=== PATIENT | male | born 1950 | race Caucasian/White ===

== ENCOUNTER → 2017-03-30 | Outpatient (CLI) | payer OTHER, MEDICARE | LOC: FIMAGING 10:22 | PROVIDERS: ATTEND Orthopaedic Surgery ==

== ENCOUNTER 2017-04-13 07:07 | Observation (INO) | payer OTHER, MEDICARE ==
[2017-03-30 11:31] LABS: % IMMATURE GRANULYOCYTES 0.2 % (0.0-1.1); ABSOLUTE IMMATURE GRANULOCYTES 0.02 10^3/uL (0.00-0.10); ADD DIFF? NO; ADD MORPH? NO; ADD SCAN? NO; ATYPICAL LYMPHOCYTE FLAG 0 (0-99); FRAGMENT RBC FLAG 0 (0-99); HEMATOCRIT 48.5 % (40.0-51.0); HEMOGLOBIN 16.9 g/dL (13.7-17.5); LEFT SHIFT FLG 0 (0-99); LIPEMIA HEMOLYSIS FLAG 90 (0-99); MEAN CELL HEMOGLOBIN 31.5 pg (27.9-34.1); MEAN CELL HEMOGLOBIN CONCENTR. 34.8 g/dL (32.4-36.7); MEAN CELL VOLUME 90.3 fL (81.5-99.8); PLATELET CLUMPS FLAG 0 (0-99); PLATELET COUNT 230 10^3/uL (150-400); RED BLOOD CELL COUNT 5.37 10^6/uL (4.40-6.38); RED CELL DISTRIBUTION WIDTH 12.7 % (11.5-15.2)
[~2017-04-13 07:07] MED LIST: ROPIVACAINE 0.2% 80 MG, EPINEPHrine 0.2 MG, KETOROLAC TROMETHAMINE 30 MG in BAG 0 ML IU ONE; TRANEXAMIC ACID 3,000 MG in NS 50 ML IRR ONE; TRANEXAMIC ACID 3,000 MG/50 ML BAG IRR ONE; VANCOMYCIN 1 GM VIAL ONE; ceFAZolin 2 GM/DEXTROSE 100 ML IV ONE
[2017-04-13] MEDS ORDERED: ACETAMINOPHEN 325 MG TAB PO ONE (08:00)
[2017-04-13] MEDS ORDERED: DEXAMETHASONE 4 MG/ML VIAL IVP ONE (08:00)
[2017-04-13] MEDS ORDERED: FAMOTIDINE 20 MG TAB PO ONE (08:00)
[2017-04-13] MEDS ORDERED: LR 1,000 ML IV ONE (08:02)
[2017-04-13] MEDS ORDERED: LIDOCAINE 1% 2 ML INJ ID PRN (08:02)
[2017-04-13] MEDS ORDERED: ONDANSETRON 4 MG/2 ML VIAL IVP PRN ×2 (08:18→10:18)
[2017-04-13] MEDS ORDERED: fentaNYL 100 MCG/2 ML INJ IVP PRN (08:18)
[2017-04-13] MEDS ORDERED: MIDAZOLAM 2 MG/2 ML VIAL IVP ONE (08:18)
[2017-04-13] MEDS ORDERED: OXYCODONE/APAP 5/325 TAB PO PRN (08:18)
[2017-04-13] MEDS ORDERED: NALOXONE HCL 0.4 MG/ML INJ IVP PRN (08:18)
[2017-04-13] MEDS ORDERED: ALBUTEROL 3 ML DEYVIAL IH PRN (08:18)
--- NOTE | 2017-04-13 08:20 | PDANEPAE ---
ANE History of Present Illness Left Partial Knee ANE Past Medical History - Cardiovascular History Hx Hypertension: No Hx Arrhythmias: No Hx Chest Pain: No Hx Coronary Artery / Peripheral Vascular Disease: No Hx CHF / Valvular Disease: No Hx Palpitations: No - Pulmonary History Hx COPD: No Hx Asthma/Reactive Airway Disease: No Hx Recent Upper Respiratory Infection: No Hx Oxygen in Use at Home: No Hx Sleep Apnea: No Sleep Apnea Screening Result - Last Documented: Negative - Neurologic History Hx Cerebrovascular Accident: No Hx Seizures: No Hx Dementia: No Neurologic History Comment: [facility] DX 2013 - Endocrine History Hx Diabetes: No - Renal History Hx Renal Disorders: No - Liver History Hx Hepatic Disorders: No - Neurological & Psychiatric Hx Hx Neurological and Psychiatric Disorders: No - Cancer History Hx Cancer: No - Congenital Disorder History Hx Congenital Disorders: No - GI History Hx Gastrointestinal Disorders: No - Other Health History Other Health History: NEG - Chronic Pain History Chronic Pain: Yes (LT KNEE) - Surgical History Prior Surgeries: LT KNEE SCOPE . TONSILLECTOMY ANE Review of Systems Review of Systems: - Exercise capacity METS (RN): 4 METS ANE Patient History - Allergies Allergies/Adverse Reactions: No Known Allergies Allergy (Unverified 03/23/17 10:00) - Home Medications Home Medications: Carbidopa/Levodopa 25/100Mg [Sinemet 25/100 MG (*)] 1 tab PO TID@07,,17 [Last Taken 04/13/17] Cholecalciferol Vit D3 [Vitamin D3 2000 units tab (OTC)] 2,000 units PO DAILY [Last Taken 03/23/17] Multivitamins [Multivitamin (*)] 1 each PO DAILY 03/23/17 [Last Taken 03/23/17] Testorone 4mg/24hr Patch 1 patch TD DAILY 03/23/17 [Last Taken 03/23/17] - NPO status NPO Since - Liquids (Date): 04/13/17 NPO Since - Liquids (Time): 05:30 NPO Since - Solids (Date): 04/12/17 NPO Since - Solids (Time): 19:00 - Smoking Hx Smoking Status: Never smoked - Family Anes Hx Family Hx Anesthesia Complications: NONE ANE Labs/Vital Signs - Labs Result Diagrams: 03/30/17 11:17 - Vital Signs Blood Pressure: 136/90 Heart Rate: 68 Respiratory Rate: 16 O2 Sat (%): 95 Height: 180.34 cm Weight: 92.986 kg ANE Physical Exam - Airway Neck exam: FROM Mallampati Score: Class 2 Mouth exam: normal dental/mouth exam - Pulmonary Pulmonary: clear to auscultation - Cardiovascular Cardiovascular: regular rate and rhythym - ASA Status ASA Status: II ANE Anesthesia Plan Anesthesia Plan: spinal Regional Anesthesia: adductor canal FNB
[2017-04-13] MEDS ORDERED: PROPOFOL/EMULSION 500 MG/50 ML BOTTLE IV ONE ×2 (08:24→09:49)
--- NOTE | 2017-04-13 09:03 | PDHPUP ---
History & Physical Update H&P update statement: This history and physical update is based on an assessment of the patient which was completed after admission or registration (within 24 hours), but prior to the surgery/procedure. H&P update: H&P reviewed & patient examined, no change in patient's condition since H&P completed
[2017-04-13] MEDS ORDERED: ROPIVACAINE HCL 150 MG/30 ML INJ ONE (10:04)
[2017-04-13] MEDS ORDERED: BISACODYL 10 MG SUPP PR PRN (10:18)
[2017-04-13] MEDS ORDERED: diphenhydrAMINE 25 MG CAP PO PRN (10:18)
[2017-04-13] MEDS ORDERED: LACTULOSE 20 GM/30 ML UDCUP PO PRN (10:18)
[2017-04-13] MEDS ORDERED: TEMAZEPAM 15 MG CAP PO PRN (10:18)
[2017-04-13] MEDS ORDERED: CYCLOBENZAPRINE 10 MG TAB PO PRN (10:18)
[2017-04-13] MEDS ORDERED: POLYETHYLENE GLYCOL 3350 17 GM PKT PO PRN (10:18)
[2017-04-13] MEDS ORDERED: MAGNESIUM HYDROXIDE 30 ML UDCUP PO PRN (10:18)
[2017-04-13] MEDS ORDERED: DIPHENOXYLATE/ATROPINE LOMOTIL 1 TAB PO PRN (10:18)
[2017-04-13] MEDS ORDERED: ONDANSETRON DISINTEGRATING 4 MG TAB PO PRN (10:18)
--- NOTE | 2017-04-13 10:18 | POSTOPPROG ---
Post Op Note Date of Operation: 04/13/17 Surgeon: Risa Gay Informatica Developer: tru black Anesthesiologist: chilo Anesthesia: IV Sedation, Local (Specify) (adductor canal), Spinal Pre-op Diagnosis: left knee medial compartment OA Post-op Diagnosis: left knee medial compartment OA Indication: failed conservative therapies Procedure: L partial knee arthroplasty, robot assist Inf/Abcess present in the surg proc area at time of surgery?: No EBL: Minimal
[2017-04-13] MEDS ORDERED: LR 1,000 ML IV SCH (10:30)
[2017-04-13] MEDS: ACETAMINOPHEN 325 MG TAB PO SCH ×2 (11:48→17:53)
[2017-04-13] MEDS ORDERED: CARBIDOPA/LEVODOPA 25 MG/100 MG TAB PO SCH ×3 (12:00→14:00)
[2017-04-13] MEDS: oxyCODONE IR 5 MG TAB PO PRN ×2 (13:55→20:29)
[2017-04-13] MEDS: CARBIDOPA/LEVODOPA 25 MG/100 MG TAB PO SCH ×2 (15:38→19:03)
[2017-04-13] MEDS: ceFAZolin 2 GM/DEXTROSE 100 ML IV SCH (17:52)
[2017-04-13] MEDS: ASPIRIN 325 MG TAB PO SCH (20:29)
[2017-04-13] MEDS: SENNOSIDES/DOCUSATE SODIUM TAB PO SCH (20:29)
[2017-04-13] MEDS: FAMOTIDINE 20 MG TAB PO SCH (20:29)
[2017-04-14] MEDS: ACETAMINOPHEN 325 MG TAB PO SCH ×4 (00:07→16:39)
[2017-04-14] MEDS: ceFAZolin 2 GM/DEXTROSE 100 ML IV SCH (00:08)
[2017-04-14 04:53] VITALS: RESP 16
[2017-04-14 05:28] LABS: HEMATOCRIT 41.3 % (40.0-51.0); HEMOGLOBIN 14.1 g/dL (13.7-17.5)
[2017-04-14] MEDS: CARBIDOPA/LEVODOPA 25 MG/100 MG TAB PO SCH ×3 (06:44→16:39)
[2017-04-14] MEDS: oxyCODONE IR 5 MG TAB PO PRN ×3 (08:35→16:37)
[2017-04-14] MEDS: SENNOSIDES/DOCUSATE SODIUM TAB PO SCH (08:35)
[2017-04-14] MEDS: ASPIRIN 325 MG TAB PO SCH (08:35)
[2017-04-14] MEDS: FAMOTIDINE 20 MG TAB PO SCH (08:36)
[2017-04-14 12:06] VITALS: PULSE 61
--- NOTE | 2017-04-14 12:11 | SOAPPROG ---
SOAP Progress Note Assessment/Plan: Assessment: Patient is doing well POD 1 s/p L PKA Pain management: pain is well controlled on oral pain meds. VTE ppx: recommend aspirin daily for 3 weeks, cont SHANNAN and SCDs Anemia: level is expected initially postop. Asymptomatic. Continue to monitor D/c planning: d/c to [facility] today pending release from PT Plan: 04/14/17 12:10 Objective: Vital Signs Temp Pulse Resp BP Pulse Ox 36.9 C 61 16 119/78 94 04/14/17 12:00 04/14/17 12:00 04/14/17 12:00 04/14/17 12:00 04/14/17 12:00 Laboratory Results 04/14/17 04:31 04/13/17 04/14/17 04/15/17 05:59 05:59 05:59 Intake Total 3461 500 Output Total 555 Balance 2906 500 ICD10 Worksheet Patient Problems: Problems Problem Status Onset Osteoarthritis of left knee Acute - ICD10 Problem Qualifiers (1) Osteoarthritis of left knee Qualifiers: Osteoarthritis type: primary Qualified Code(s): M17.12 - Unilateral primary osteoarthritis, left knee
--- NOTE | 2017-04-14 12:15 | PDIAF ---
- Diagnosis Diagnosis: left knee OA Code Status: Full Code - Medication Management Discharge Medications: Medications to Continue on Transfer Carbidopa/Levodopa 25/100Mg [Sinemet 25/100 MG (*)] 1 tab PO TID@, [Last Taken 04/13/17] Cholecalciferol Vit D3 [Vitamin D3 2000 units tab (OTC)] 2,000 units PO DAILY [Last Taken 03/23/17] Multivitamins [Multivitamin (*)] 1 each PO DAILY 03/23/17 [Last Taken 03/23/17] Acetaminophen [Tylenol 325mg (*)] 650 mg PO Q6HRS tab 04/14/17 [Last Taken Unknown] Aspirin [Aspirin 325 mg (*)] 325 mg PO DAILY tab 04/14/17 [Last Taken Unknown] Ondansetron Odt [Zofran Odt 4 mg (*)] 4 mg PO Q4HRS PRN tab 04/14/17 [Last Taken Unknown] Sennosides/Docusate Sodium [Senokot-S] 1 - 2 tab PO BID tab 04/14/17 [Last Taken Unknown] celeCOXIB [Celebrex (*)] 200 mg PO DAILY cap 04/14/17 [Last Taken Unknown] oxyCODONE IR [Oxycodone Ir (*)] 5 - 10 mg PO Q3HRS PRN tab 04/14/17 [Last Taken Unknown] Discharge Medications: Refer to the Discharge Home Medication list for PRN reason. - Orders Services needed: Physical Therapy Diet Recommendation: no restrictions on diet Diet Texture: Regular Texture Diet Arben Stockings Discontinue Date: 2 weeks Wound Care Instructions: keep clean and dry. You may shower. Cover dressing with press and seal. Activity/Weight Bearing Restrictions: as tolerated . - Follow Up Care Current Providers and Referrals: Betty Nova [Primary Care Provider] - Risa Gay MD [Medical Doctor] - 05/03/17
[2017-04-14 15:41] VITALS: BP 130/77; TEMP 97.8; O2SAT 93
--- NOTE | 2017-04-15 17:07 | ASDISCHSUM ---
Discharge Information Plan Status:SNF Medically Cleared to Leave:04/14/2017 Discharge Date:04/14/2017 06:19 PM CM D/C Disposition:Snf Facility ADT D/C Disposition:Snf Facility Projected Discharge Date:04/14/2017 05:30 PM Transportation at D/C:Wheelchair Van Discharge Delay Reason: Follow-Up Date:04/14/2017 05:30 PM Discharge Slot:2 - 12:01 pm - 18:00 pm Final Diagnosis:L PKA Placement Information Referral Type:*[facility]/SNF Referral ID:[id number] Provider Name:Adela Stern Myra Address 1:[address] Phone Number: Address 2: Fax Number: City:[place] Selection Factors:Patient/Family Choice State:[place] Patient Contact Information Contact Name:ANGELAINE Relationship: Address:[address] City:[place] Phone: State/Zip Code:[place] [address] Email: Financial Information Financial Class: Primary Plan Desc:MEDICARE INPATIENT Primary Plan Number:[id number] Secondary Plan Desc:[employer]/MDR SUPPLEMENT Secondary Plan Number:[id number] Assessment Information [facility] CM Progress Note CM Note CM Note Notes: Reviewed chart, spoke w/ Dr. Gay and JOSE Nur. Pt to discharge today to , per prior arrangements. Call placed to Elisa at ; confirmed acceptance. Per Elisa, pt was pre-authorized/pre-approved for stay at and does not require 3 midnights in hospital per Medicare guidelines. Met w/ pt, pt's spouse to discuss plan and to answer any questions. GARCIA form signed and placed in chart, for obs status. Elisa arranged transport w/ [facility] for 1730; update provided to pt, pt's and RN. Discharge orders/paperwork sent via [email or web address]; confirmed receipt. Report number provided to RN . Pt to f/u as directed. CM avail for any further issues or concerns. Date Signed: 04/14/2017 02:55 PM Electronically Signed By:Deena Worley Intervention Information Intervention Type:*Incorrect Registration Date of Service:04/13/2017 03:43 PM Patient Type:Inpatient Staff Member:Libertad Mcdonald Hours: Discipline: Severity: Comment: Intervention Type:*GARCIA-Signed Date of Service:04/14/2017 01:30 PM Patient Type:Observation Staff Member:Deena Worley Hours: Discipline: Severity: Comment:
--- NOTE | 2017-04-15 17:08 | ASMTCMCOM ---
CM Note CM Note Notes: Reviewed chart, spoke w/ Dr. Gay and Liudmila RN. Pt to discharge today to [facility], per prior arrangements. Call placed to Elisa at ; confirmed acceptance. Per Elisa, pt was pre-authorized/pre-approved for stay at and does not require 3 midnights in hospital per Medicare guidelines. Met w/ pt, pt's spouse to discuss plan and to answer any questions. GARCIA form signed and placed in chart, for obs status. Elisa arranged transport w/ [facility] for 1730; update provided to pt, pt's and RN. Discharge orders/paperwork sent via [employer]; confirmed receipt. Report number provided to RN . Pt to f/u as directed. CM avail for any further issues or concerns. Date Signed: 04/14/2017 02:55 PM Electronically Signed By:Deena Worley
--- NOTE | 2017-04-16 10:24 | GOP ---
[f rep st] OPERATIVE REPORT DATE OF OPERATION: 04/13/17 SURGEON: Yovani Gay MD ASSOCIATE EMBALMER/FUNERAL DIRECTOR: Laci Benoit PA-C ANESTHESIA: Spinal. PREOPERATIVE DIAGNOSIS: Left knee osteoarthritis. POSTOPERATIVE DIAGNOSIS: Left knee osteoarthritis. PROCEDURE PERFORMED: Left medial compartment partial-knee replacement with computer navigation and robotic assist. FINDINGS: ESTIMATED BLOOD LOSS: 30 cc. INDICATIONS: This is a 67-year-old male with progressive pain of the left knee unresponsive to conservative care. Risks and benefits of surgical intervention were explained in detail. DESCRIPTION OF PROCEDURE: The patient was brought to the operating room and placed on the table in supine position. Spinal anesthesia was induced without difficulty. A pneumatic tourniquet was applied about the left proximal thigh and the leg was prepped and draped in sterile fashion. Attention was turned first to the distal aspect of the left femur. At 3 cm proximal to the lateral rise of the femur, 2 percutaneous half pins were placed for fixation of the femoral array. In a similar fashion, 2 pins were placed anterolateral on the tibia for fixation of the tibial array. External land marking and registration of the hip center was performed without difficulty. After exsanguination by elevation, the tourniquet was inflated to 250 mmHg. Incision was made from the tibial tuberosity to the superior pole of the patella. Dissection was carried out through the subcutaneous tissue to the deep fascia using Bovie electrocautery for hemostasis. Medial parapatellar arthrotomy was carried out to the superior pole of the patella. The medial collateral ligament was elevated and the infrapatellar fat pad was resected. Internal femoral and tibial registration was carried out without difficulty and the femoral and tibial checkpoints were placed and verified for accuracy. Attention was turned to the femur. The foot print for the size 5 femoral component was cut with the 6 mm bur using the Incuvo robotic system and verified for accuracy against the CT based plan. The hole was cut for the femoral post. In a similar fashion, the 6 mm bur was used to cut the foot print for the size 5 tibial component using the Incuvo system and verified for accuracy against the CT based plan. Attention was turned to the posterior aspect of the knee and remnants of the medial meniscus were excised. The posterior capsule was injected with ropivacaine, epinephrine and Toradol. Trial reduction was carried out and there was excellent range of motion, alignment and stability using the size 5 femoral component and the size 5 tibial component, 5 x 9 mm polyethylene. All trials were then removed. The joint was thoroughly irrigated and carefully dried. One package of cement and 1 gram of vancomycin were mixed in the vacuum mixer and placed on the fixation surfaces of all components. The components were implanted and all excess cement was thoroughly removed. Implant placement was verified against the CT view plan and found to be excellent. The tourniquet was deflated and all bleeders were coagulated. The wound was thoroughly irrigated and closed using interrupted sutures of 2-0 Vicryl for the joint capsule. The subcu was closed with 3-0 Vicryl and the skin with 4-0 Monocryl. Dermabond and Steri-Strips were applied, followed by a compressive dressing. The patient was then moved from the operating room to the recovery room in good condition, having tolerated the procedure well. CASE CLASSIFICATION: Clean. /[id number]/MODL MTDD
--- NOTE | 2017-04-19 03:48 | GDS ---
[f rep st] DISCHARGE SUMMARY ADMISSION DIAGNOSIS: Left knee medial compartment osteoarthritis. DISCHARGE DIAGNOSIS: Left knee medial compartment osteoarthritis. PROCEDURE: Left partial knee arthroplasty of the medial compartment, robot assist. VTE PROPHYLAXIS: Full-strength aspirin x21 days. BRIEF DESCRIPTION OF HOSPITAL STAY: Patient was admitted for an elective joint arthroplasty. The pa tient tolerated the procedure well and has passed physical therapy. The patient was given appropriat e antibiotic prophylaxis and venous thromboembolism prophylaxis. The patient's pain was well control led on oral pain medication, patient was holding down food, and had urinated. Decision was made to d ischarge the patient. The patient was given post-operative prescriptions pre-operatively. PLAN: Please follow up with Dr. Gay as scheduled in 3 weeks. /[id number]/MODL
== END 2017-04-14 18:19 ==
LOC: F3N 07:07 → INTOOBSV 07:07 → F3N 11:32
PROVIDERS: ADMIT Orthopaedic Surgery; ATTEND Orthopaedic Surgery
PROC: 8E0YXBG Computer Assisted Procedure of Lower Extremity, With Computerized Tomography (ICD-10-PCS; principal; 2017-04-13 09:15)
PROC: 0SRD0JZ Replacement of Left Knee Joint with Synthetic Substitute, Open Approach (ICD-10-PCS; principal; 2017-04-13 09:15)
PROC: 8E0Y0CZ Robotic Assisted Procedure of Lower Extremity, Open Approach (ICD-10-PCS; principal; 2017-04-13 09:15)
DX: M17.12 Unilateral primary osteoarthritis, left knee (principal); G20 Parkinson's disease
CPT/HCPCS: 27446; 73560; 97110; 97116; 97161; 97165; C1713; C1776; G8978; G8979; G8987; G8988; J0171; J0690; J1100; J1885; J2250; J2704; J2795; J3370